=== PATIENT | female | born 1970 | race Two or more races ===

== ENCOUNTER → 2025-06-07 | Outpatient (CLI) | payer MEDICAID, SELFPAY ==
--- NOTE | 2025-06-07 08:37 | XR_ITS ---
Examination: Hand, left 3 views Technique: Hand AP, oblique, lateral 3 views Date and time of exam: June 07, 2025, 0837 hours INDICATIONS: Swelling and pain involving the left hand second digit beginning 1 year ago. FINDINGS: Moderate osteopenia. No fracture or dislocation. No cortical bone destruction Minimal osteoarthritis interphalangeal joints and first carpometacarpal joint No erosive arthritis IMPRESSION: Mild osteopenia No fractures Minimal osteoarthritis
== END | disposition home or self-care (01) ==
PROVIDERS: PCP Nurse Practitioner Family; Referring Provider Nurse Practitioner Gerontology; Visit Provider Nurse Practitioner Gerontology
DX: M85.842 Other specified disorders of bone density and structure, left hand (principal); M18.12 Unilateral primary osteoarthritis of first carpometacarpal joint, left hand
CPT/HCPCS: 73130